=== PATIENT | female | born 1950 | race Caucasian/White ===

== ENCOUNTER 2016-09-05 08:55 | Outpatient (CLI) | payer MEDICARE ==
[2016-09-05 09:49] LABS: eGFR (African) > 60; eGFR (Non-African) > 60
== END 2016-09-05 08:56 ==
LOC: RAD 08:55
PROVIDERS: ATTEND Family Medicine
DX: E11.9 Type 2 diabetes mellitus without complications (principal); M81.0 Age-related osteoporosis without current pathological fracture
CPT/HCPCS: 36415; 77080; 80053; 80061; 83036

== ENCOUNTER 2016-09-16 09:51 | Outpatient (CLI) | payer MEDICARE ==
[2016-09-16] MEDS ORDERED: DENOSUMAB 60 MG/ML ML SQ ONE (10:00)
== END 2016-09-16 09:52 ==
LOC: INF 09:51
PROVIDERS: ATTEND Family Medicine
DX: M81.0 Age-related osteoporosis without current pathological fracture (principal)
CPT/HCPCS: 96372; J0897

== ENCOUNTER 2016-12-31 07:39 | Outpatient (CLI) | payer MEDICARE ==
[2016-12-31 09:05] LABS: eGFR (African) > 60; eGFR (Non-African) > 60
== END 2016-12-31 07:40 ==
LOC: LAB 07:39
PROVIDERS: ATTEND Internal Medicine
DX: E11.9 Type 2 diabetes mellitus without complications (principal)
CPT/HCPCS: 36415; 80048; 80061; 82043; 83036

== ENCOUNTER 2017-02-10 13:18 | Outpatient (CLI) | payer MEDICARE | END 2017-02-10 13:20 | LOC: POD 13:18 | PROVIDERS: ATTEND Podiatrist | DX: E11.42 Type 2 diabetes mellitus with diabetic polyneuropathy (principal); L60.0 Ingrowing nail | CPT/HCPCS: G0463 ==

== ENCOUNTER 2017-03-19 07:01 | Outpatient (CLI) | payer MEDICARE ==
[2017-03-19] MEDS ORDERED: DENOSUMAB 60 MG/ML ML SQ SCH (09:00)
[2017-03-19] MEDS ORDERED: DENOSUMAB 60 MG/ML ML SQ ONE (13:00)
[2017-03-21] MEDS ORDERED: SALINE FLUSH 10 ML DISP.SYRIN IVF ONE (14:31)
== END 2017-03-19 07:03 ==
LOC: INF 07:01
PROVIDERS: ATTEND Family Medicine
DX: M81.0 Age-related osteoporosis without current pathological fracture (principal)
CPT/HCPCS: 96372; J0897

== ENCOUNTER 2017-04-02 09:08 | Outpatient (CLI) | payer MEDICARE ==
[2017-04-02 09:57] LABS: eGFR (African) > 60; eGFR (Non-African) > 60
== END 2017-04-02 09:10 ==
LOC: LAB 09:08
PROVIDERS: ATTEND Internal Medicine
DX: E11.9 Type 2 diabetes mellitus without complications (principal)
CPT/HCPCS: 36415; 80048; 83036

== ENCOUNTER 2017-07-15 13:45 | Outpatient (CLI) | payer MEDICARE | END 2017-07-15 13:46 | LOC: LAB 13:45 | PROVIDERS: ATTEND Family Medicine | DX: E11.9 Type 2 diabetes mellitus without complications (principal) | CPT/HCPCS: 36415; 83036 ==

== ENCOUNTER 2018-02-01 15:46 | Outpatient (CLI) | payer OTHER ==
--- NOTE | 2018-02-01 18:44 | Diagnostic Imaging Report ---
VILMA GARVEY [facility] [address] [facility] [address] [address] Report Submission Date: Feb 01, 2018 4:46:13 PM CDT Patient Study Name: TERRELL WILLOUGHBY Date: Feb 01, 2018 4:12:29 PM CDT Modality Type: DX Gender: F Description: PELVIS : 54 Institution: [facility] Physician: VILMA GARVEY Examination: Plain film left hip History: LT HIP PAIN X 1-2 MONTHS HX OF MS X 20 YEARS (Hx) Comparison exams: None provided Findings: 2 views of the left hip demonstrates osteopenia. No fracture no dislocation. No soft tissue abnormality. Impression: Osteopenia. No acute appearing osseous abnormality. Electronically signed on Feb 01, 2018 4:46:13 PM CDT by: Terrance LEAVITT
== END 2018-02-01 15:47 ==
LOC: LAB 15:46
PROVIDERS: ATTEND Family Medicine
DX: E11.9 Type 2 diabetes mellitus without complications (principal); M25.552 Pain in left hip
CPT/HCPCS: 36415; 83036

== ENCOUNTER 2018-05-05 15:25 | Outpatient (CLI) | payer OTHER ==
[2018-05-05 18:01] LABS: eGFR (Non-African) > 60
== END 2018-05-05 15:26 ==
LOC: LAB 15:25
PROVIDERS: ATTEND Internal Medicine
DX: E11.9 Type 2 diabetes mellitus without complications (principal)
CPT/HCPCS: 36415; 80053; 83036

== ENCOUNTER 2018-08-22 20:55 | Emergency (ER) | payer OTHER ==
[2018-08-22] MEDS ORDERED: 0.9 % SODIUM CHLORIDE 1,000 ML IV ONE (21:06)
--- NOTE | 2018-08-22 22:20 | ED Physician Documentation ---
General Adult - HISTORIAN Historian: patient - HPI Stated Complaint: not feeling well Chief Complaint: General Adult Additional Information: Patient, with a history of multiple sclerosis, presents with a week history of weakness and general malaise. Patient reports vomiting x 1 last thursday. Since that time she complains of chills, weakness and malaise. She denies abdominal pain, shortness of breath, dysuria or chest pain - ROS CONST: chills EYES/ENT: none CVS/RESP: denies: shortness of breath GI/: vomiting MS/SKIN/LYMPH: none NEURO/PSYCH: denies: headache - PAST HX Past History: other (multiple sclerosis) Other History: none Surgeries/Procedures: none Allergies/Adverse Reactions: Allergies Allergy/AdvReac Type Severity Reaction Status Date / Time Penicillins AdvReac Unknown unknown Verified 08/22/18 21:31 Home Medications: Ambulatory Orders Medication Instructions Recorded Calcium Carbonate [Calcium] 500 mg PO DAILY u2 09/05/14 Ciprofloxacin HCl [Cipro] 500 mg PO BID #14 tablet 08/22/18 - SOCIAL HX Smoking History: non-smoker Alcohol Use: none Drug Use: none - FAMILY HX Family History: No - VITAL SIGNS Vital Signs: Vital Signs Temp Pulse Resp BP Pulse Ox 99.7 F H 98 H 20 132/58 96 08/22/18 20:55 08/22/18 20:55 08/22/18 20:55 08/22/18 20:55 08/22/18 20:55 - REVIEWED ASSESSMENTS Nursing Assessment Reviewed: Yes Vitals Reviewed: Yes ED Results Lab/Radiology - Lab Results Lab Results: UA - Leukocytes 3+ CBC, CMP - WNL - Radiology Radiology Impressions: Report Submission Date: Aug 22, 2018 10:01:41 PM CDT Patient Study Name: TERRELL WILLOUGHBY Date: Aug 22, 2018 9:32:45 PM CDT Modality Type: DX Gender: F Description: CHEST 2VIEW : 54 Institution: [facility] Physician: MARJORIE DEVLIN Chest AP portable Date of Exam: August 22, 2018. History: WEAKNESS (Hx) / Findings: No comparison studies are provided. The cardiac and mediastinal silhouettes are normal. There is bilateral lower lobe scarring or atelectasis. The trachea is midline. Aortic arch atherosclerotic calcifications are present. The pulmonary vascularity is within normal limits. No infiltrate or effusion is identified. Impression: Bilateral lower lobe atelectasis or lung scarring. No evidence of infiltrate or effusion. Electronically signed on Aug 22, 2018 10:01:41 PM CDT by: Ck Garcia - Orders Orders: ED Orders Category Date Time Status Place IV Lock 1T Care 08/22/18 21:06 Active CHEST 2VIEW [RAD] Stat Exams 08/22/18 Taken CBC/PLATELET/DIFF Routine Lab 08/22/18 21:24 Received CMP Routine Lab 08/22/18 21:24 Received INFLUENZA A&B Stat Lab 08/22/18 22:00 Ordered UA W/MICRO IF INDICATED Routine Lab 08/22/18 21:06 Ordered 0.9 % Sodium Chloride [Normal Saline] 1,000 ml Med 08/22/18 21:06 Discontinued IV Q1H General Adult Physical Exam - PHYSICAL EXAM GENERAL APPEARANCE: no distress EENT: NYA NECK: supple RESPIRATORY: no resp distress, chest non-tender, breath sounds normal CVS: reg rate & rhythm, heart sounds normal ABDOMEN: soft, normal bowel sounds. No: tenderness BACK: normal inspection SKIN: warm/dry EXTREMITIES: non-tender, no evidence of injury NEURO: oriented X3, motor nml, mood/affect nml Discharge Clincal Impression: Acute cystitis without hematuria Prescriptions: Ciprofloxacin HCl [Cipro] 500 mg PO BID #14 tablet Referrals: Marlen Germain MD [Primary Care Provider] - 2 Days Additional Instructions: 1. Take Cipro until all gone 2. Drink plenty of fluids to maintain proper hydration. Avoid caffeine 3. Follow up with Dr. Germain on as already scheduled 4. Return to ER for new or worsening symptoms Condition: Stable Disposition: HOME, SELF-CARE Decision to Admit: NO Date of Decison to Admit: 08/22/18 Decision Time: 22:23
[2018-08-22] MEDS ORDERED: CIPROFLOXACIN HCL 500 MG TABLET PO ONE (22:26)
[2018-08-22 23:11] VITALS: BP 139/67
--- NOTE | 2018-08-23 06:08 | Diagnostic Imaging Report ---
MARJORIE DEVLIN [facility] [address] [facility] [address] [place], [place]. [address] Report Submission Date: Aug 22, 2018 10:01:41 PM CDT Patient Study Name: TERRELL WILLOUGHBY Date: Aug 22, 2018 9:32:45 PM CDT Modality Type: DX Gender: F Description: CHEST 2VIEW : 54 Institution: [facility] Physician: MARJORIE DEVLIN Chest AP portable Date of Exam: August 22, 2018. History: WEAKNESS (Hx) / Findings: No comparison studies are provided. The cardiac and mediastinal silhouettes are normal. There is bilateral lower lobe scarring or atelectasis. The trachea is midline. Aortic arch atherosclerotic calcifications are present. The pulmonary vascularity is within normal limits. No infiltrate or effusion is identified. Impression: Bilateral lower lobe atelectasis or lung scarring. No evidence of infiltrate or effusion. Electronically signed on Aug 22, 2018 10:01:41 PM CDT by: Ck LEAVITT
[2018-08-23 07:33] LABS: APPEARANCE,URINE CLEAR (CLEAR); COLOR,URINE YELLOW (YELLOW); OCCULT BLOOD,URINE 1+ (NEGATIVE); PH URINE 5.5 (5.0 - 8.0)
[2018-08-23 07:41] LABS: BASOPHILS % 0.8 (0.0-1.5); EOSINOPHILS % 1.4 % (0.0-6.8); MEAN CORPUSCULAR HEMOGLOBIN 26.6 pg (28.0-34.0); MONOCYTES % 6.8 % (0.0-11.0); NEUTROPHILS # 8.4 # k/uL (1.4-7.7); eGFR (Non-African) > 60
== END 2018-08-22 23:11 | disposition home or self-care (01) ==
LOC: ED 20:55
DX: N30.00 Acute cystitis without hematuria (principal); B96.20 Unspecified Escherichia coli [E. coli] as the cause of diseases classified elsewhere
CPT/HCPCS: 36415; 71046; 80053; 81002; 85025; 87086; 87400; 99283; J7030; S1016

== ENCOUNTER 2018-08-26 14:10 | Outpatient (CLI) | payer OTHER | END 2018-08-26 14:11 | LOC: LABRHC 14:10 | PROVIDERS: ATTEND Family Medicine | DX: E11.9 Type 2 diabetes mellitus without complications (principal); R29.6 Repeated falls; G35 Multiple sclerosis | CPT/HCPCS: 83036 ==

== ENCOUNTER 2019-05-26 10:59 | Outpatient (CLI) | payer MEDICARE ==
[2019-05-26 12:07] LABS: BASOPHILS % 0.4 % (0.0-1.5); NEUTROPHILS # 5.4 # k/uL (1.4-7.7)
[2019-05-26 12:19] LABS: eGFR (Non-African) > 60
== END 2019-05-26 11:04 ==
LOC: LAB 10:59
PROVIDERS: ATTEND Family Medicine
DX: E11.9 Type 2 diabetes mellitus without complications (principal); R63.4 Abnormal weight loss
CPT/HCPCS: 36415; 80053; 84443; 85025